=== PATIENT | male | born 1955 | race Caucasian/White ===

== ENCOUNTER 2025-09-12 20:03 | Inpatient (IN) | payer MEDICARE ==
[~2025-09-12] VITALS: Ht 188 cm; Wt 78.9 kg
[2025-09-12 21:13] LABS: PLATELET COUNT (AUTO) 305 K/uL (152-348); RED BLOOD CELL COUNT(AUTO) 4.78 MIL/uL (4.06-5.63); RED CELL DISTRIBUTION WIDTH 13.6 % (12.1-16.2); WHITE BLOOD COUNT (AUTO) 7.5 K/uL (3.6-10.2)
[2025-09-12 21:21] LABS: CREATININE 1.0 mg/dL (0.6-1.3); SODIUM SERUM 138 mmol/L (136-145); UREA NITROGEN, BLOOD 14 mg/dL (7-18)
[2025-09-12 21:26] LABS: ASPARTATE AMINOTRANSFERASE 20 U/L (15-37); TOTAL PROTEIN, SERUM 8.3 g/dL (6.4-8.2)
[2025-09-12] MEDS: CEFTRIAXONE 500 MG VIAL IV ONE (22:05)
[2025-09-12] MEDS ORDERED: CEFTRIAXONE /D5W 50ML IVPB **ER PYXIS IV ONE (22:06)
[2025-09-12] MEDS ORDERED: IOHEXOL 350 100 ML INFUS..BTL ONE (22:38)
[2025-09-13] VITALS: BP 140/72
[2025-09-13 01:20] VITALS: BP 148/96; TEMP 98.3; O2SAT 96
[2025-09-13] MEDS ORDERED: MAGNESIUM HYDROXIDE 30 ML LIQUID UDC PO PRN (01:30)
[2025-09-13] MEDS ORDERED: ONDANSETRON 4 MG/2 ML VIAL IV PRN (01:30)
[2025-09-13] MEDS ORDERED: ACETAMINOPHEN 325 MG TABLET PO PRN (01:30)
[2025-09-13] MEDS ORDERED: AZITHROMYCIN 500MG/ D5W 250ML IVPB **ER PYXIS ONLY IV ONE (01:59)
[2025-09-13] MEDS: AZITHROMYCIN IV 500 MG in IV DEXTROSE 5% 250 ML IV SCH (02:05)
[2025-09-13 05:28] VITALS: BP 148/90; TEMP 97.4; O2SAT 94
[2025-09-13 09:33] LABS: PLATELET COUNT (AUTO) 252 K/uL (152-348); RED BLOOD CELL COUNT(AUTO) 4.29 MIL/uL (4.06-5.63); RED CELL DISTRIBUTION WIDTH 13.6 % (12.1-16.2); WHITE BLOOD COUNT (AUTO) 7.9 K/uL (3.6-10.2)
[2025-09-13 09:41] LABS: CREATININE 1.2 mg/dL (0.6-1.3); SODIUM SERUM 139 mmol/L (136-145); UREA NITROGEN, BLOOD 11 mg/dL (7-18)
[2025-09-13] MEDS ORDERED: nyquil PO (10:33)
[2025-09-13] MEDS ORDERED: dayquil PO (10:33)
[2025-09-13] MEDS ORDERED: IBUP-2413 PO (10:34)
[2025-09-14] MEDS ORDERED: AZITHROMYCIN IV 500 MG in IV DEXTROSE 5% 250 ML IV SCH (02:00)
== END 2025-09-13 11:49 | disposition left against medical advice (07) | DRG 180 ==
LOC: ER 20:03 → TELE3 09-13 00:50 → MEDSURG3 09-13 02:08
PROVIDERS: ADMIT Nurse Practitioner Acute Care
DX: C34.02 Malignant neoplasm of left main bronchus (principal); J18.9 Pneumonia, unspecified organism; J91.8 Pleural effusion in other conditions classified elsewhere; R79.1 Abnormal coagulation profile; F17.211 Nicotine dependence, cigarettes, in remission; R59.0 Localized enlarged lymph nodes
CPT/HCPCS: 36415; 71045; 71275; 83605; 83735; 84484; 85025; 85730; 87040; 93005; A4606; A4663; G0378; J0456; J0696; J7050; Q9967